=== PATIENT | female | born 1990 | race Caucasian/White ===

== ENCOUNTER 2024-01-17 17:19 | Emergency (ER) | payer OTHER, SELFPAY ==
[2024-01-17 18:07] VITALS: BP 139/91; PULSE 98; RESP 18; TEMP 37; O2SAT 99; BMI 26.0
--- NOTE | 2024-01-17 18:10 | ED.FEMALEGU ---
HPI - Female Genitourinary General Chief complaint: Urogenital-Female Stated complaint: abd pain Time Seen by Provider: 01/17/24 18:53 Source: family Limitations: language barrier History of Present Illness ED Provider: Yenny Ryan PA-C HPI Narrative: 33-year-old female with history of kidney stones presents with dysuria x1 day. Associated suprapubic discomfort. Denies back pain, flank pain, nausea, vomiting, fever. Related Data Previous Rx's ?Medication ?Instructions ?Recorded cephalexin 500 mg capsule 500 mg PO BID #14 caps 01/17/24 phenazopyridine 200 mg tablet 200 mg PO TID PRN pain #9 tabs 01/17/24 Allergies Allergy/AdvReac Type Severity Reaction Status Date / Time No Known Allergies Allergy Verified 01/17/24 18:09 Review of Systems Review of Systems: Yes all other systems are reviewed and are negative Constitutional: Constitutional: Denies fever(s) Gastrointestinal: Gastrointestinal: Reports abdominal pain Genitourinary: Genitourinary: Reports dysuria and Denies vaginal discharge [facility] Past Medical History Attestation statement: The following information was validated with the patient. Social History Social History Advance Directives: No Advance Directives Information Provided: No Physical Exam Vital Signs: Vital Signs: Last Vital Signs Temp 99.1 F 01/17/24 19:06 Pulse 97 01/17/24 19:06 Resp 16 01/17/24 19:06 BP 148/97 H 01/17/24 19:06 Pulse Ox 98 01/17/24 19:06 O2 Del Method Room Air 01/17/24 19:06 BMI result Body Mass Index 26.0 Const: General: healthy appearing Orientation/consciousness: patient oriented x3 Resp: Effort & Inspection: normal respiratory effort Cardio: Other: Normal peripheral perfusion GI: Other: Abdomen is soft, nondistended nontender no guarding Back/Spine/Pelvis: Other: No CVA tenderness bilaterally Skin: Other: Warm dry no rash Neuro: General: patient oriented x3, no focal motor deficits and CN's II-XI intact bilaterally Psych: Other: Calm cooperative Course Course Course Narrative: Rapid medical exam performed by Yenny Ryan PA-C. 33-year-old female with a history of prior kidney stones presents with dysuria x1 day. Pain over suprapubic region, nonradiating. Denies fever, nausea, vomiting, obvious hematuria. On exam, her abdomen is soft, nondistended nontender. She has no CVA tenderness. We will order a urinalysis and urine test. Patient will return to the waiting room pending full assessment. Medical Decision Making Medical Decision Making MDM Narrative: 33-year-old female with history of kidney stones presents with dysuria x1 day. Associated suprapubic discomfort. Denies back pain, flank pain, nausea, vomiting, fever. Problem: Kidney stones History: Per patient's I have considered the following differential diagnoses: Renal colic, pyelonephritis, UTI Plan: Patient has no reported back pain or flank pain. Her abdominal exam was benign. She has not had any fevers or active vomiting, to suggest pyelonephritis and there is no CVA tenderness on exam. Her presentation is not consistent with renal colic, and imaging not warranted. We will obtain a urine and urinalysis. I have independently reviewed the following tests: Labs: Urine infected, she is not Lab Data Labs: Lab Results 01/17/24 Range/Units 18:20 Urine Color Yellow Urine Appearance Turbid Urine pH 8.5 (5.0-9.0) Ur Specific [place] 1.020 (1.005-1.025) Urine Protein 100 (2+) H (Neg-Trace) mg/dL Urine Glucose (UA) Negative (Negative) mg/dL Urine Ketones Negative (Negative) mg/dL Urine Blood Large (3+) H (Negative) Urine Nitrite Positive H (Negative) Ur Leukocyte Esterase Large (3+) H (Negative) Urine RBC >20 H (0-2) /HPF Urine WBC >50 H (0-5) /HPF Ur Squamous Epith Cells 0-2 (0-2) /HPF Urine Bacteria 4+ (None Seen) Hyaline Casts 3-5 (0-2) /LPF Urine Test NEGATIVE (NEGATIVE) Discharge Plan Discharge Clinical Impression: Urinary tract infection Patient Disposition: Home, Self-Care Instructions: Urinary Tract Infection in Women (ED) Additional Instructions: You were found to have a urinary tract infection. See home care instructions. Use the cephalexin, this is an antibiotic, as directed. You received your 1st dose overnight in the emergency room you do not require any additional medication until the morning. You also received a dose of medication to help your urinary pain, this is called Pyridium. To note, your urine we will become bright orange in color, this is normal and it will resolve. Use this medication as needed for pain. Follow up with your primary care provider as needed. Prescriptions: New phenazopyridine 200 mg tablet 200 mg PO TID PRN (Reason: pain) Qty: 9 0RF cephalexin 500 mg capsule 500 mg PO BID Qty: 14 0RF Print Language: Nepali
[2024-01-17 18:34] LABS: Appearance Urine Turbid; Glucose Urine UA Negative (Negative); Leukocyte Esterase Urine Large (3+) (Negative); Nitrite Urine Positive (Negative); PH 8.5 (5.0-9.0); UMIC TRIGGER UACC YES; UPreg QC Valid YES; Urine Blood Large (3+) (Negative); Urine Ketones Negative (Negative); Urine Pregnancy NEGATIVE (NEGATIVE); Urine Protein 100 (2+) mg/dL (Neg-Trace)
[2024-01-17 18:35] LABS: Color Urine Yellow
[2024-01-17 18:37] LABS: Bacteria Urine 4+ (None Seen); RBC Urine >20 /HPF (0-2); Squamous Epithelial Cell Urine 0-2 /HPF (0-2); UACC Culture Trigger YES; WBC Urine >50 /HPF (0-5)
[2024-01-17 19:06] VITALS: BP 148/97; PULSE 97; RESP 16; TEMP 37.3; O2SAT 98
[2024-01-17] MEDS: Phenazopyridine HCL 200 MG TABLET PO (19:24)
[2024-01-17] MEDS: cephALEXin 500 MG CAPSULE PO (19:24)
[2024-01-17 19:26] VITALS: BP 148/97; PULSE 97; RESP 16; TEMP 37.3; O2SAT 98
== END 2024-01-17 19:27 | disposition home or self-care (01) ==
PROVIDERS: Physician Assistant Medical; Emergency Provider Emergency Medicine
DX: N39.0 Urinary tract infection, site not specified (principal); R30.0 Dysuria; Z87.442 Personal history of urinary calculi; Z79.899 Other long term (current) drug therapy
CPT/HCPCS: 81001; 81025; 87086; 87088; 87186; 99283

== ENCOUNTER 2024-01-30 11:45 | Emergency (ER) | payer OTHER, SELFPAY ==
[2024-01-30 12:06] VITALS: BP 130/85; PULSE 95; RESP 16; TEMP 36.8; O2SAT 99; BMI 26.5
--- NOTE | 2024-01-30 12:09 | ED_ITS ---
HPI - Female Genitourinary General Chief complaint: Urogenital-Female Stated complaint: lower abd/back pain Time Seen by Provider: 01/30/24 16:58 Source: patient, family, RN notes reviewed and old records reviewed Mode of arrival: ambulatory Limitations: no limitations History of Present Illness ED Provider: Berny Jamison PA-C HPI Narrative: 33 yo female with recently diagnosed E coli UTI on 01/16, treated with Keflex x7 days who presents to the ER for recurrence of urinary symptoms x2 days. She reports completing her antibiotics, not miss any doses. She reports suprapubic pain, urgency, frequency, low back pain. No vomiting, fevers or chills. She denies any vaginal discharge or bleeding. Denies chance of . MD elicited complaint: UTI Onset (ago): day(s) (2) Location of symptoms: suprapubic Severity: moderate Female Urogenital Radiation: Suprapubic Severity scale (1-10): 5 Quality of pain: burning Consistency: constant Vaginal discharge: none Vaginal bleeding: none Urinary symptoms: Dysuria, Urgency and Frequency Exacerbating factors: urination Relieving factors: none Associated symptoms: denies other symptoms Treatment prior to arrival: none Sexual activity: Yes Patient : No Related Data Previous Rx's ?Medication ?Instructions ?Recorded cephalexin 500 mg capsule 500 mg PO BID #14 caps 01/17/24 phenazopyridine 200 mg tablet 200 mg PO TID PRN pain #9 tabs 01/17/24 nitrofurantoin 100 mg PO BID #20 caps 01/30/24 monohydrate/macrocrystals 100 mg capsule (Macrobid) Allergies Allergy/AdvReac Type Severity Reaction Status Date / Time No Known Allergies Allergy Verified 01/30/24 12:09 Review of Systems Review of Systems: Yes all other systems are reviewed and are negative PMFSH Social History Social History Advance Directives: No Advance Directives Information Provided: Yes Patient : No Physical Exam Vital Signs: Vital Signs: Last Vital Signs Temp 98.2 F 01/30/24 17:04 Pulse 95 01/30/24 17:04 Resp 16 01/30/24 17:04 BP 130/85 01/30/24 17:04 Pulse Ox 99 01/30/24 17:04 O2 Del Method Room Air 01/30/24 17:04 BMI result Body Mass Index 26.5 Appearance: Alert. Oriented X3. No acute distress. HEENT: normal external inspction. Neck: Normal inspection. CVS: Normal heart rate and rhythm. Respiratory: No respiratory distress. Breath sounds normal. Abdomen: Soft with moderate suprapubic tenderness centrally, no right lower quadrant tenderness. Normoactive +BS x4. No CVA tenderness bilaterally Skin: Skin warm and dry. Normal skin color. Normal skin turgor. No rashes. Extremities: No lower extremity edema. No joint swelling. Neuro/psych: Oriented X 3. Grossly normal, nonfocal, steady gait Medical Decision Making Medical Decision Making [facility] Narrative: 33 yo female with recent herbert sensitive E coli UTI on 01/16 s/p keflex x7 days presents with recurrent urinary symptoms. she initially had resolution of symptoms when she was on the antibiotics and then they started back up 2 days ago. no back pain, vomiting, nausea or fevers no cva tenderness on exam. UA positive for infection, negative for not tachycardic or febrile. no evidence of sepsis will treat for 10 days with macrobid. she has PCP appointment in february for d/c home with outpatient follow up, return precautions discussed Differential Diagnosis Differential Diagnoses: The differential diagnosis associated with the presentation includes UTI, interstitial cystitis, pyelonephritis, vaginitis, PID Lab Data [facility] Lab Attestation statement: I reviewed the patient's lab results. Labs: Lab Results 01/30/24 01/30/24 Range/Units 15:24 15:28 Urine Color Yellow Urine Appearance Cloudy Urine pH 7.5 (5.0-9.0) Ur Specific [place] 1.025 (1.005-1.025) Urine Protein 100 (2+) H (Neg-Trace) mg/dL Urine Glucose (UA) Negative (Negative) mg/dL Urine Ketones Negative (Negative) mg/dL Urine Blood Large (3+) H (Negative) Urine Nitrite Negative (Negative) Ur Leukocyte Esterase Large (3+) H (Negative) Urine RBC >20 H (0-2) /HPF Urine WBC >50 H (0-5) /HPF Ur Squamous Epith Cells 0-2 (0-2) /HPF Urine Bacteria None Seen (None Seen) Hyaline Casts 0-2 (0-2) /LPF Urine Test NEGATIVE (NEGATIVE) Independent Historian Clinical information obtained from an independent historian. History obtained from or confirmed by: Spouse External Record Review External record reviewed: Outpatient record and Prior outpatient labs Tests considered The following testing was considered but not selected: considered CT abd/pelvis Prescription Management I considered prescription management with: Pain Medication and Antibiotic Critical Care Time Critical Care Time Critical Care Time: No Discharge Plan Discharge Clinical Impression: Urinary tract infection Qualifiers: Urinary tract infection type: acute cystitis Hematuria presence: with hematuria Qualified Code(s): N30.01 - Acute cystitis with hematuria Patient Disposition: Home, Self-Care Instructions: Urinary Tract Infection in Women (DC) Additional Instructions: Your urine test today showed infection. It was negative for . Take the prescribed antibiotics as directed, complete the entire course and do not miss any doses Drink plenty of water. No sexual activity until your off of all of your antibio tics and your symptoms have completely resolved. Recommend following with primary care doctor. If you have recurrent urinary tract infections, it may be worth following up with Urology to find out why this is happening to you. If you develop new or worsening symptoms call 911 or come back to the ER for further evaluation. Prescriptions: New nitrofurantoin monohyd/m-cryst [Macrobid] 100 mg capsule 100 mg PO BID Qty: 20 0RF Rx Instructions: must administer with a meal/food No Action phenazopyridine 200 mg tablet 200 mg PO TID PRN (Reason: pain) Qty: 9 0RF cephalexin 500 mg capsule 500 mg PO BID Qty: 14 0RF Referrals: [facility] [Provider Group] Interventions: ED Discharge Assessment Last Done: 01/30/24 17:04 Discharge Date/Time: 01/30/24 17:05 Print Language: [place]ian
[2024-01-30 15:41] LABS: Appearance Urine Cloudy; Color Urine Yellow; Glucose Urine UA Negative (Negative); Leukocyte Esterase Urine Large (3+) (Negative); Nitrite Urine Negative (Negative); PH 7.5 (5.0-9.0); Specific Gravity - Urine 1.025 (1.005-1.025); UMIC TRIGGER UACC YES; Urine Blood Large (3+) (Negative); Urine Ketones Negative (Negative); Urine Protein 100 (2+) mg/dL (Neg-Trace)
[2024-01-30 15:42] LABS: UPreg QC Valid YES; Urine Pregnancy NEGATIVE (NEGATIVE)
[2024-01-30 15:43] LABS: Bacteria Urine None Seen (None Seen); Hyaline Casts Urine 0-2 /LPF (0-2); RBC Urine >20 /HPF (0-2); Squamous Epithelial Cell Urine 0-2 /HPF (0-2); UACC Culture Trigger YES; WBC Urine >50 /HPF (0-5)
[2024-01-30 17:04] VITALS: BP 130/85; PULSE 95; RESP 16; TEMP 36.8; O2SAT 99
== END 2024-01-30 17:05 | disposition home or self-care (01) ==
PROVIDERS: Physician Assistant; Emergency Provider Emergency Medicine
DX: N30.01 Acute cystitis with hematuria (principal); R10.30 Lower abdominal pain, unspecified
CPT/HCPCS: 81001; 81025; 87086; 87088; 87186; 99282; 99283